=== PATIENT | female | born 1945 | race African-American/Black ===

== ENCOUNTER 2016-07-13 17:40 | Emergency (ER) | payer MEDICARE ==
[~2016-07-13] VITALS: Ht 149.9 cm; Wt 78.0 kg
[~2016-07-13 17:40] MED LIST: BENZONATATE200 MG PO; CAL-CITRATE OR; CALCIUM600 M1 PO; DIOVAN HC1 OR; DIOVAN HC1 PO; DIOVAN80 MG PO; FLEXERIL PO; LASIX20 MG PO; LOVASTATIN10 M1 PO; METFORMIN500 M2 PO; MULTI VIT PO; MULTIVITAMI9 OR; OMEGA 3-6-9 COMPLEX OR; OMEGA 3-6-9 COMPLEX PO; PREDNISONE10 MG PO; PRILOSEC20 MG/CAP PO; SUGAR BLOCKER PO; ULTRAM50 MG OR; ULTRAM50 MG PO; ZITHROMAX250 MG PO; [UNRECOGNIZED DRUG - CODE] PO; [UNRECOGNIZED DRUG - OTHER]
[2016-07-13 19:11] LABS: HEMATOCRIT 38.8 % (37.0-47.0); HEMOGLOBIN 13.1 g/dl (12.0-16.0); IMMATURE GRANULOCYTES 0.4 % (0.0-1.0); MEAN CELL VOLUME 88.6 fL CALC (80.0-100.0); MEAN CORPUSCULAR HGB 29.9 pG CALC (26.0-32.0); MEAN CORPUSCULAR HGB CONC 33.8 g/L CALC (32.0-36.0); NEUT# 9.52 thou/uL (2.00-7.15); RED BLOOD COUNT 4.38 mill/uL (4.20-5.60); RED CELL DISTRI WIDTH 13.1 % (11.5-15.5)
[2016-07-13 19:15] LABS: PROTHROMBIN TIME 10.9 SECONDS (9.0-12.5)
[2016-07-13 19:18] LABS: ALBUMIN 4.9 g/dL (3.2-5.0); ALKALINE PHOSPHATASE 93 u/l (38-126); ANION GAP 18 (6-22 (CALC)); BILIRUBIN, TOTAL 0.8 mg/dL (0.0-1.4); BUN 17 mg/dL (8-23); BUN/CREATININE RATIO 22 (12-20 (CALC)); CARBON DIOXIDE 29 mmol/l (22-30); CHLORIDE 99 mmol/l (95-108); CREATININE 0.7 mg/dL (0.5-1.0); GFR > 60 ML/MIN (>=60 (CALC)); GFR FOR AFR.AMER. > 60 ML/MIN (>=60 (CALC)); GLUCOSE 146 mg/dL (82-115); POTASSIUM 3.6 mmol/l (3.5-5.1); SGOT/AST 39 u/l (9-36); SGPT/ALT 42 u/l (11-66); SODIUM 143 mmol/l (137-146); TOTAL PROTEIN 9.1 g/dL (6.3-8.2)
[2016-07-13 19:29] LABS: MYOGLOBIN 239 ng/mL (0 - 62)
[2016-07-13 20:15] LABS: URINE BILIRUBIN - DIPSTICK NEGATIVE (NEGATIVE); URINE BLOOD DIPSTICK NEGATIVE (NEGATIVE); URINE CLARITY CLEAR; URINE COLOR YELLOW; URINE GLUCOSE - DIPSTICK NEGATIVE (NEGATIVE); URINE KETONE NEGATIVE (NEGATIVE); URINE LEUK ESTERASE TRACE (NEGATIVE); URINE NITRITE - DIPSTICK NEGATIVE (Negative); URINE PH 5.5 (4.5-8.0); URINE PROTEIN - DIPSTICK NEGATIVE (NEG-TRACE); URINE SPECIFIC GRAVITY 1.025; URINE UROBILINOGEN - DIPSTICK 0.2 E.U./dL (0.2)
[2016-07-13 20:17] LABS: BARBITURATES NEGATIVE (NEGATIVE); COCAINE NEGATIVE (NEGATIVE); METHADONE NEGATIVE (NEGATIVE); OXCYCODONE NEGATIVE (NEGATIVE); TETRAHYDROCANNABIONOL NEGATIVE (NEGATIVE); TRICYLIC ANTIDEPRESSANTS NEGATIVE (NEGATIVE)
[2016-07-13 21:35] VITALS: BP 141/74
== END 2016-07-13 21:35 | disposition short-term general hospital (02) ==
LOC: ED 17:40
PROVIDERS: Emergency Medicine
DX: I62.01 Nontraumatic acute subdural hemorrhage (principal); I10 Essential (primary) hypertension; R53.1 Weakness; R42 Dizziness and giddiness; W18.30XA Fall on same level, unspecified, initial encounter; Y92.009 Unspecified place in unspecified non-institutional (private) residence as the place of occurrence of the external cause; R51 Headache

== ENCOUNTER 2017-11-15 23:56 | Emergency (ER) | payer MEDICARE ==
[~2017-11-15] VITALS: Ht 149.9 cm; Wt 70.5 kg
[2017-11-16] MEDS ORDERED: DONEPEZIL5 MG PO (00:30)
[2017-11-16] MEDS ORDERED: METFORMIN500 MG PO (00:30)
[2017-11-16] MEDS ORDERED: BACLOFEN10 MG PO (00:31)
[2017-11-16] MEDS ORDERED: FIORICET PO (00:32)
[2017-11-16] MEDS ORDERED: LORTAB 1010 MG PO (01:54)
[2017-11-16 02:30] VITALS: BP 155/84
== END 2017-11-16 02:33 | disposition home or self-care (01) ==
LOC: ED 23:56
DX: M47.812 Spondylosis without myelopathy or radiculopathy, cervical region (principal); M43.6 Torticollis; M54.2 Cervicalgia

== ENCOUNTER → 2018-01-13 | Outpatient (REF) | payer MEDICARE ==
[~2018-01-13] MED LIST changes: +BACLOFEN10 MG PO; +DONEPEZIL5 MG PO; +FIORICET PO; +LORTAB 1010 MG PO; +METFORMIN500 MG PO
[2018-01-13 08:41] LABS: ALBUMIN 4.1 g/dL (3.2-5.0); ALKALINE PHOSPHATASE 76 u/l (38-126); ANION GAP 12 (6-22 (CALC)); BILIRUBIN, TOTAL 0.5 mg/dL (0.0-1.4); BUN 15 mg/dL (8-23); BUN/CREATININE RATIO 23 (12-20 (CALC)); CALCULATED LDLCHOLESTEROL 98 mg/dL (62-129 (CALC)); CARBON DIOXIDE 34 mmol/l (22-30); CHLORIDE 98 mmol/l (95-108); CREATININE 0.7 mg/dL (0.5-1.0); GFR > 60 ML/MIN (>=60 (CALC)); GFR FOR AFR.AMER. > 60 ML/MIN (>=60 (CALC)); HDL CHOLESTEROL 37 mg/dL (>=40); POTASSIUM 4.2 mmol/l (3.5-5.1); SGOT/AST 55 u/l (9-36); SODIUM 140 mmol/l (137-146); TOTAL CHOLESTEROL 186 mg/dl (0-199); TOTAL PROTEIN 7.5 g/dL (6.3-8.2); TOTAL TRIGLYCERIDES 253 mg/dl (30-149); VLDL CHOLESTROL 51 mg/dl (0-48 (CALC))
[2018-01-13 09:37] LABS: HEMATOCRIT 39.9 % (37.0-47.0); HEMOGLOBIN 13.4 g/dl (12.0-16.0); MEAN CELL VOLUME 91.7 fL CALC (80.0-100.0); MEAN CORPUSCULAR HGB 30.8 pG CALC (26.0-32.0); MEAN CORPUSCULAR HGB CONC 33.6 g/L CALC (32.0-36.0); RED BLOOD COUNT 4.35 mill/uL (4.20-5.60); RED CELL DISTRI WIDTH 13.3 % (11.5-15.5)
== END | disposition home or self-care (01) ==
LOC: MRI 06:44
PROVIDERS: ATTEND Internal Medicine
DX: M54.12 Radiculopathy, cervical region (principal); E11.9 Type 2 diabetes mellitus without complications; I10 Essential (primary) hypertension

== ENCOUNTER 2018-03-18 13:04 | Inpatient (IN) | payer MEDICARE ==
[~2018-03-18] VITALS: Ht 149.9 cm; Wt 74.0 kg
[2018-03-18] MEDS ORDERED: CELECOXIB100 MG PO (13:27)
[2018-03-18] MEDS ORDERED: ZETIA10 MG PO (13:27)
[2018-03-18] MEDS ORDERED: GLUCOSAMINE & C1 CAP PO (13:28)
[2018-03-18] MEDS ORDERED: GABAPENTIN100 MG PO (13:28)
[2018-03-18 13:34] LABS: HEMOGLOBIN 13.7 g/dl (12.0-16.0); IMMATURE GRANULOCYTES 0.6 % (0.0-5.0); MEAN CELL VOLUME 90.3 fL CALC (80.0-100.0); MEAN CORPUSCULAR HGB 30.9 pG CALC (26.0-32.0); MEAN CORPUSCULAR HGB CONC 34.3 g/L CALC (32.0-36.0); NEUT# 16.33 thou/uL (2.00-7.15); RED BLOOD COUNT 4.43 mill/uL (4.20-5.60); RED CELL DISTRI WIDTH 13.2 % (11.5-15.5)
[2018-03-18 13:49] LABS: ANION GAP 16 (6-22 (CALC)); BUN 13 mg/dL (8-23); BUN/CREATININE RATIO 19 (12-20 (CALC)); CARBON DIOXIDE 28 mmol/l (22-30); CHLORIDE 99 mmol/l (95-108); CREATININE 0.7 mg/dL (0.5-1.0); GFR > 60 ML/MIN (>=60 (CALC)); GFR FOR AFR.AMER. > 60 ML/MIN (>=60 (CALC)); POTASSIUM 4.2 mmol/l (3.5-5.1); SODIUM 138 mmol/l (137-146)
[2018-03-18 14:38] LABS: URINE BILIRUBIN - DIPSTICK NEGATIVE (NEGATIVE); URINE BLOOD DIPSTICK NEGATIVE (NEGATIVE); URINE COLOR YELLOW; URINE GLUCOSE - DIPSTICK NEGATIVE (NEGATIVE); URINE KETONE NEGATIVE (NEGATIVE); URINE LEUK ESTERASE NEGATIVE (NEGATIVE); URINE NITRITE - DIPSTICK NEGATIVE (Negative); URINE PROTEIN - DIPSTICK NEGATIVE (NEG-TRACE); URINE UROBILINOGEN - DIPSTICK 0.2 E.U./dL (0.2)
[2018-03-18 15:37] LABS: URINE CLARITY CLEAR
[2018-03-18 17:04] VITALS: BP 118/73
[2018-03-18 19:00] VITALS: BP 91/61
[2018-03-19] VITALS: BP 119/73
[2018-03-19 04:45] VITALS: BP 119/78
[2018-03-19 06:02] LABS: ANION GAP 12 (6-22 (CALC)); BUN 13 mg/dL (8-23); BUN/CREATININE RATIO 22 (12-20 (CALC)); CARBON DIOXIDE 30 mmol/l (22-30); CHLORIDE 101 mmol/l (95-108); CREATININE 0.6 mg/dL (0.5-1.0); GFR > 60 ML/MIN (>=60 (CALC)); GFR FOR AFR.AMER. > 60 ML/MIN (>=60 (CALC)); HEMATOCRIT 36.8 % (37.0-47.0); HEMOGLOBIN 12.2 g/dl (12.0-16.0); MEAN CELL VOLUME 92.2 fL CALC (80.0-100.0); MEAN CORPUSCULAR HGB 30.6 pG CALC (26.0-32.0); MEAN CORPUSCULAR HGB CONC 33.2 g/L CALC (32.0-36.0); POTASSIUM 3.6 mmol/l (3.5-5.1); RED BLOOD COUNT 3.99 mill/uL (4.20-5.60); RED CELL DISTRI WIDTH 13.4 % (11.5-15.5); SODIUM 139 mmol/l (137-146)
[2018-03-19 08:00] VITALS: BP 106/58
[2018-03-19 11:57] VITALS: BP 119/79
[2018-03-19 15:45] VITALS: BP 143/87
[2018-03-19 16:26] LABS: ALKALINE PHOSPHATASE 66 u/l (38-126); AMYLASE 55 u/l (30-110); ANION GAP 14 (6-22 (CALC)); BILIRUBIN, TOTAL 0.5 mg/dL (0.0-1.4); BUN 13 mg/dL (8-23); BUN/CREATININE RATIO 18 (12-20 (CALC)); CARBON DIOXIDE 25 mmol/l (22-30); CHLORIDE 105 mmol/l (95-108); CREATININE 0.7 mg/dL (0.5-1.0); GFR > 60 ML/MIN (>=60 (CALC)); GFR FOR AFR.AMER. > 60 ML/MIN (>=60 (CALC)); LIPASE 189 u/l (23-300); POTASSIUM 3.8 mmol/l (3.5-5.1); SGOT/AST 34 u/l (9-36); SODIUM 140 mmol/l (137-146); TOTAL PROTEIN 7.2 g/dL (6.3-8.2)
[2018-03-19 16:27] LABS: ALBUMIN 3.8 g/dL (3.2-5.0)
[2018-03-19 20:00] VITALS: BP 121/68
[2018-03-20 05:03] VITALS: BP 125/71
[2018-03-20 05:47] LABS: HEMATOCRIT 38.1 % (37.0-47.0); HEMOGLOBIN 12.7 g/dl (12.0-16.0); IMMATURE GRANULOCYTES 0.5 % (0.0-5.0); MEAN CELL VOLUME 92.9 fL CALC (80.0-100.0); MEAN CORPUSCULAR HGB CONC 33.3 g/L CALC (32.0-36.0); NEUT# 8.78 thou/uL (2.00-7.15); RED BLOOD COUNT 4.1 mill/uL (4.20-5.60); RED CELL DISTRI WIDTH 13.4 % (11.5-15.5)
[2018-03-20 06:14] LABS: ANION GAP 12 (6-22 (CALC)); BUN 11 mg/dL (8-23); BUN/CREATININE RATIO 18 (12-20 (CALC)); CARBON DIOXIDE 28 mmol/l (22-30); CHLORIDE 103 mmol/l (95-108); CREATININE 0.6 mg/dL (0.5-1.0); GFR > 60 ML/MIN (>=60 (CALC)); GFR FOR AFR.AMER. > 60 ML/MIN (>=60 (CALC)); POTASSIUM 4.2 mmol/l (3.5-5.1); SODIUM 139 mmol/l (137-146)
[2018-03-20 08:07] VITALS: BP 118/85
[2018-03-20 11:32] LABS: URINE BILIRUBIN - DIPSTICK NEGATIVE (NEGATIVE); URINE BLOOD DIPSTICK TRACE-INTACT (NEGATIVE); URINE COLOR YELLOW; URINE GLUCOSE - DIPSTICK NEGATIVE (NEGATIVE); URINE KETONE NEGATIVE (NEGATIVE); URINE LEUK ESTERASE NEGATIVE (Negative); URINE NITRITE - DIPSTICK NEGATIVE (Negative); URINE PROTEIN - DIPSTICK NEGATIVE (NEG-TRACE); URINE UROBILINOGEN - DIPSTICK 0.2 E.U./dL (0.2)
[2018-03-20 11:36] LABS: URINE CLARITY CLEAR
[2018-03-20 12:00] VITALS: BP 139/81
[2018-03-20 15:55] VITALS: BP 114/72
[2018-03-20 20:27] VITALS: BP 115/64
[2018-03-20 23:51] VITALS: BP 120/77
[2018-03-21 04:43] VITALS: BP 119/66
[2018-03-21 05:31] LABS: HEMATOCRIT 33.9 % (37.0-47.0); HEMOGLOBIN 11.4 g/dl (12.0-16.0); IMMATURE GRANULOCYTES 0.3 % (0.0-5.0); MEAN CELL VOLUME 92.4 fL CALC (80.0-100.0); MEAN CORPUSCULAR HGB 31.1 pG CALC (26.0-32.0); MEAN CORPUSCULAR HGB CONC 33.6 g/L CALC (32.0-36.0); NEUT# 5.31 thou/uL (2.00-7.15); RED BLOOD COUNT 3.67 mill/uL (4.20-5.60); RED CELL DISTRI WIDTH 13.4 % (11.5-15.5)
[2018-03-21 05:53] LABS: ALKALINE PHOSPHATASE 54 u/l (38-126); ANION GAP 11 (6-22 (CALC)); BILIRUBIN, TOTAL 0.8 mg/dL (0.0-1.4); BUN 8 mg/dL (8-23); BUN/CREATININE RATIO 12 (12-20 (CALC)); CARBON DIOXIDE 24 mmol/l (22-30); CHLORIDE 106 mmol/l (95-108); CREATININE 0.7 mg/dL (0.5-1.0); GFR > 60 ML/MIN (>=60 (CALC)); GFR FOR AFR.AMER. > 60 ML/MIN (>=60 (CALC)); MAGNESIUM 1.8 mg/dL (1.6-2.3); POTASSIUM 3.7 mmol/l (3.5-5.1); SGOT/AST 24 u/l (9-36); SODIUM 138 mmol/l (137-146); TOTAL PROTEIN 6.1 g/dL (6.3-8.2)
[2018-03-21 08:00] VITALS: BP 116/68
[2018-03-21 14:45] VITALS: BP 117/68
[2018-03-21 20:06] VITALS: BP 115/69
[2018-03-22 04:30] VITALS: BP 134/82
[2018-03-22 05:51] LABS: HEMATOCRIT 33.4 % (37.0-47.0); HEMOGLOBIN 10.7 g/dl (12.0-16.0); IMMATURE GRANULOCYTES 0.4 % (0.0-5.0); MEAN CELL VOLUME 97.1 fL CALC (80.0-100.0); MEAN CORPUSCULAR HGB 31.1 pG CALC (26.0-32.0); NEUT# 5.51 thou/uL (2.00-7.15); RED BLOOD COUNT 3.44 mill/uL (4.20-5.60); RED CELL DISTRI WIDTH 14.5 % (11.5-15.5)
[2018-03-22 06:14] LABS: ALKALINE PHOSPHATASE 55 u/l (38-126); ANION GAP 12 (6-22 (CALC)); BILIRUBIN, TOTAL 0.8 mg/dL (0.0-1.4); BUN 9 mg/dL (8-23); BUN/CREATININE RATIO 14 (12-20 (CALC)); CARBON DIOXIDE 24 mmol/l (22-30); CHLORIDE 108 mmol/l (95-108); CREATININE 0.7 mg/dL (0.5-1.0); GFR > 60 ML/MIN (>=60 (CALC)); GFR FOR AFR.AMER. > 60 ML/MIN (>=60 (CALC)); MAGNESIUM 1.9 mg/dL (1.6-2.3); POTASSIUM 3.9 mmol/l (3.5-5.1); SGOT/AST 23 u/l (9-36); SODIUM 140 mmol/l (137-146); TOTAL PROTEIN 5.9 g/dL (6.3-8.2)
[2018-03-22 08:17] VITALS: BP 160/98
[2018-03-22 16:00] VITALS: BP 152/90
[2018-03-22 19:53] VITALS: BP 102/64
[2018-03-23 04:52] VITALS: BP 145/91
[2018-03-23 05:39] LABS: HEMATOCRIT 30.7 % (37.0-47.0); HEMOGLOBIN 10.3 g/dl (12.0-16.0); IMMATURE GRANULOCYTES 0.7 % (0.0-5.0); MEAN CELL VOLUME 91.9 fL CALC (80.0-100.0); MEAN CORPUSCULAR HGB 30.8 pG CALC (26.0-32.0); MEAN CORPUSCULAR HGB CONC 33.6 g/L CALC (32.0-36.0); NEUT# 4.74 thou/uL (2.00-7.15); RED BLOOD COUNT 3.34 mill/uL (4.20-5.60); RED CELL DISTRI WIDTH 13.3 % (11.5-15.5)
[2018-03-23 06:10] LABS: ALBUMIN 3.1 g/dL (3.2-5.0); ALKALINE PHOSPHATASE 58 u/l (38-126); ANION GAP 11 (6-22 (CALC)); BILIRUBIN, TOTAL 0.8 mg/dL (0.0-1.4); BUN 8 mg/dL (8-23); BUN/CREATININE RATIO 15 (12-20 (CALC)); CARBON DIOXIDE 24 mmol/l (22-30); CHLORIDE 107 mmol/l (95-108); CREATININE 0.5 mg/dL (0.5-1.0); GFR > 60 ML/MIN (>=60 (CALC)); GFR FOR AFR.AMER. > 60 ML/MIN (>=60 (CALC)); MAGNESIUM 1.9 mg/dL (1.6-2.3); POTASSIUM 3.7 mmol/l (3.5-5.1); SGOT/AST 21 u/l (9-36); SODIUM 139 mmol/l (137-146); TOTAL PROTEIN 6.1 g/dL (6.3-8.2)
[2018-03-23 08:19] VITALS: BP 140/79
[2018-03-23 16:17] VITALS: BP 149/68
[2018-03-23 19:39] VITALS: BP 137/84
[2018-03-24 04:45] VITALS: BP 151/91
[2018-03-24 05:58] LABS: HEMATOCRIT 30.3 % (37.0-47.0); HEMOGLOBIN 10.2 g/dl (12.0-16.0); IMMATURE GRANULOCYTES 0.7 % (0.0-5.0); MEAN CELL VOLUME 91.5 fL CALC (80.0-100.0); MEAN CORPUSCULAR HGB 30.8 pG CALC (26.0-32.0); MEAN CORPUSCULAR HGB CONC 33.7 g/L CALC (32.0-36.0); NEUT# 3.98 thou/uL (2.00-7.15); RED BLOOD COUNT 3.31 mill/uL (4.20-5.60); RED CELL DISTRI WIDTH 13.3 % (11.5-15.5)
[2018-03-24 06:36] LABS: ALBUMIN 2.9 g/dL (3.2-5.0); ALKALINE PHOSPHATASE 59 u/l (38-126); ANION GAP 14 (6-22 (CALC)); BILIRUBIN, TOTAL 0.7 mg/dL (0.0-1.4); BUN 6 mg/dL (8-23); BUN/CREATININE RATIO 10 (12-20 (CALC)); CARBON DIOXIDE 25 mmol/l (22-30); CHLORIDE 104 mmol/l (95-108); CREATININE 0.6 mg/dL (0.5-1.0); GFR > 60 ML/MIN (>=60 (CALC)); GFR FOR AFR.AMER. > 60 ML/MIN (>=60 (CALC)); MAGNESIUM 1.9 mg/dL (1.6-2.3); POTASSIUM 3.6 mmol/l (3.5-5.1); SGOT/AST 26 u/l (9-36); SODIUM 139 mmol/l (137-146); TOTAL PROTEIN 5.9 g/dL (6.3-8.2)
[2018-03-24 09:14] VITALS: BP 162/90
[2018-03-24 15:39] VITALS: BP 147/81
[2018-03-24 19:17] VITALS: BP 144/85
[2018-03-25 04:42] VITALS: BP 136/92
[2018-03-25 05:15] LABS: HEMATOCRIT 34.3 % (37.0-47.0); HEMOGLOBIN 11.5 g/dl (12.0-16.0); MEAN CELL VOLUME 91.5 fL CALC (80.0-100.0); MEAN CORPUSCULAR HGB 30.7 pG CALC (26.0-32.0); MEAN CORPUSCULAR HGB CONC 33.5 g/L CALC (32.0-36.0); RED BLOOD COUNT 3.75 mill/uL (4.20-5.60); RED CELL DISTRI WIDTH 13.3 % (11.5-15.5)
[2018-03-25 05:38] LABS: ALBUMIN 3.3 g/dL (3.2-5.0); ALKALINE PHOSPHATASE 67 u/l (38-126); ANION GAP 14 (6-22 (CALC)); BILIRUBIN, TOTAL 0.6 mg/dL (0.0-1.4); BUN 4 mg/dL (8-23); BUN/CREATININE RATIO 7 (12-20 (CALC)); CARBON DIOXIDE 27 mmol/l (22-30); CHLORIDE 102 mmol/l (95-108); CREATININE 0.6 mg/dL (0.5-1.0); GFR > 60 ML/MIN (>=60 (CALC)); GFR FOR AFR.AMER. > 60 ML/MIN (>=60 (CALC)); MAGNESIUM 1.9 mg/dL (1.6-2.3); POTASSIUM 3.7 mmol/l (3.5-5.1); SGOT/AST 33 u/l (9-36); SODIUM 140 mmol/l (137-146); TOTAL PROTEIN 6.7 g/dL (6.3-8.2)
[2018-03-25 06:11] LABS: MANUAL DIFFERENTIAL YES
[2018-03-25 06:12] LABS: BAND 6 % (0-8)
[2018-03-25 06:15] LABS: PLATELET COUNT 305 thou/uL (130-400)
[2018-03-25 07:28] VITALS: BP 147/77
[2018-03-25 11:25] VITALS: BP 152/98
[2018-03-25 16:00] VITALS: BP 152/90
[2018-03-25 20:10] VITALS: BP 145/71
[2018-03-26 04:45] VITALS: BP 155/76
[2018-03-26 07:55] VITALS: BP 138/68
[2018-03-26 12:00] VITALS: BP 133/74
[2018-03-26 16:00] VITALS: BP 135/78
[2018-03-26 19:50] VITALS: BP 94/52
[2018-03-27 05:12] VITALS: BP 135/86
[2018-03-27 08:10] VITALS: BP 170/97
[2018-03-27 09:10] VITALS: BP 170/97
[2018-03-27] MEDS ORDERED: AMOXICILLIN500 MG PO (12:19)
[2018-03-27] MEDS ORDERED: TRAMADOL HYDROC50 MG PO (12:21)
== END 2018-03-27 13:13 | disposition home health service (06) | DRG 872 ==
LOC: ED 13:04 → ED-I 15:00 → ED 15:18 → MS2 15:19
PROVIDERS: Family Medicine; Internal Medicine Nephrology; ADMIT Internal Medicine; ATTEND Internal Medicine
PROC: 009U3ZX Drainage of Spinal Canal, Percutaneous Approach, Diagnostic (ICD-10-PCS; principal; 2018-03-18)
DX: A40.1 Sepsis due to streptococcus, group B (principal); M50.10 Cervical disc disorder with radiculopathy, unspecified cervical region; M54.16 Radiculopathy, lumbar region; I10 Essential (primary) hypertension; E11.40 Type 2 diabetes mellitus with diabetic neuropathy, unspecified; D64.9 Anemia, unspecified; F03.90 Unspecified dementia, unspecified severity, without behavioral disturbance, psychotic disturbance, mood disturbance, and anxiety; Z79.84 Long term (current) use of oral hypoglycemic drugs
CPT/HCPCS: J0131; J1650; J1756; J2540; J3370

== ENCOUNTER 2018-05-19 10:00 | Outpatient (RCR) | payer MEDICARE ==
[~2018-05-19 10:00] MED LIST changes: +AMOXICILLIN500 MG PO; +CELECOXIB100 MG PO; +GABAPENTIN100 MG PO; +GLUCOSAMINE & C1 CAP PO; +TRAMADOL HYDROC50 MG PO; +ZETIA10 MG PO
== END 2018-05-30 08:54 | disposition home or self-care (01) ==
LOC: PT 10:00
PROVIDERS: ATTEND Nurse Practitioner Adult Health
DX: M54.12 Radiculopathy, cervical region (principal); M54.5 Low back pain; R53.1 Weakness

== ENCOUNTER 2018-07-30 20:58 | Emergency (ER) | payer MEDICARE ==
[~2018-07-30] VITALS: Ht 149.9 cm; Wt 70.0 kg
[2018-07-30 22:52] VITALS: BP 120/75
== END 2018-07-30 22:51 | disposition home or self-care (01) ==
LOC: ED 20:58
DX: S80.01XA Contusion of right knee, initial encounter (principal); S50.01XA Contusion of right elbow, initial encounter; S51.011A Laceration without foreign body of right elbow, initial encounter; W01.0XXA Fall on same level from slipping, tripping and stumbling without subsequent striking against object, initial encounter; Y93.01 Activity, walking, marching and hiking; Y92.009 Unspecified place in unspecified non-institutional (private) residence as the place of occurrence of the external cause

== ENCOUNTER 2019-10-07 21:18 | Emergency (ER) | payer MEDICARE ==
[~2019-10-07] VITALS: Ht 149.9 cm; Wt 72.0 kg
[2019-10-07 22:03] LABS: HEMATOCRIT 36.7 % (37.0-47.0); HEMOGLOBIN 12.6 g/dl (12.0-16.0); IMMATURE GRANULOCYTES 0.2 % (0.0-5.0); MEAN CELL VOLUME 90.2 fL CALC (80.0-100.0); MEAN CORPUSCULAR HGB CONC 34.3 g/dL CAL (32.0-36.0); NEUT# 3.79 thou/uL (2.00-7.15); RED BLOOD COUNT 4.07 mill/uL (4.20-5.60); RED CELL DISTRI WIDTH 13.2 % (11.5-15.5)
[2019-10-07 22:18] LABS: ALBUMIN 4.4 g/dL (3.2-5.0); ALKALINE PHOSPHATASE 81 u/l (38-126); ANION GAP 13 (6-22 (CALC)); BUN 14 mg/dL (8-23); BUN/CREATININE RATIO 19 (12-20 (CALC)); CARBON DIOXIDE 29 mmol/l (22-30); CHLORIDE 99 mmol/l (95-108); CREATININE 0.7 mg/dL (0.5-1.0); GFR > 60 ML/MIN (>=60 (CALC)); GFR FOR AFR.AMER. > 60 ML/MIN (>=60 (CALC)); POTASSIUM 3.3 mmol/l (3.5-5.1); SGOT/AST 59 u/l (9-36); SODIUM 137 mmol/l (137-146); TOTAL PROTEIN 7.7 g/dL (6.3-8.2)
[2019-10-07 22:28] LABS: BILIRUBIN, TOTAL 0.5 mg/dL (0.0-1.4)
[2019-10-07] MEDS ORDERED: FISH,FLAX,BORAGE OIL (23:24)
[2019-10-07] MEDS ORDERED: PERCOCET 5/325M1 TAB PO (23:40)
[2019-10-07 23:44] LABS: URINE BILIRUBIN - DIPSTICK NEGATIVE (NEGATIVE); URINE BLOOD DIPSTICK NEGATIVE (NEGATIVE); URINE CLARITY CLEAR; URINE COLOR YELLOW; URINE GLUCOSE - DIPSTICK NEGATIVE (NEGATIVE); URINE KETONE NEGATIVE (NEGATIVE); URINE LEUK ESTERASE NEGATIVE (Negative); URINE NITRITE - DIPSTICK NEGATIVE (Negative); URINE PROTEIN - DIPSTICK NEGATIVE (NEG-TRACE); URINE SPECIFIC GRAVITY 1.025; URINE UROBILINOGEN - DIPSTICK 0.2 E.U./dL (0.2)
[2019-10-07 23:51] VITALS: BP 128/745
== END 2019-10-07 23:51 | disposition home or self-care (01) ==
LOC: ED 21:18
PROVIDERS: Emergency Medicine
DX: M79.672 Pain in left foot (principal); I11.0 Hypertensive heart disease with heart failure; I50.9 Heart failure, unspecified; E11.9 Type 2 diabetes mellitus without complications; Z79.84 Long term (current) use of oral hypoglycemic drugs

== ENCOUNTER 2020-08-19 14:46 | Observation (INO) | payer MEDICARE ==
[~2020-08-19] VITALS: Ht 149.9 cm; Wt 65.0 kg
[~2020-08-19 14:46] MED LIST changes: +ALLOPURINOL100 MG PO; +BUPROPION HCL150 M1 PO; +DESYREL50 MG PO; +DIOVAN HCT PO; +EZETIMIBE10 MG PO; +FISH,FLAX,BORAGE OIL; +FLEXERIL5 M1 PO; +JARDIANCE25 MG PO; +METFORMIN HCL500 M1 PO; +OMEPRAZOLE DR20 MG PO; +PERCOCET 5/325M1 TAB PO
--- NOTE | 2020-08-19 15:13 | NUR ---
PT AMBUALTED BACK TO ROOM. PT INSTRUCTED ON PLAN OF CARE.
[2020-08-19 15:37] LABS: HEMATOCRIT 46.9 % (37.0-47.0); HEMOGLOBIN 15.3 g/dl (12.0-16.0); IMMATURE GRANULOCYTES 0.1 % (0.0-5.0); MEAN CORPUSCULAR HGB CONC 32.6 g/dL CAL (32.0-36.0); NEUT# 2.91 thou/uL (2.00-7.15); RED BLOOD COUNT 5.1 mill/uL (4.20-5.60); RED CELL DISTRI WIDTH 13.3 % (11.5-15.5)
[2020-08-19 15:53] LABS: ALBUMIN 4.7 g/dL (3.2-5.0); ALKALINE PHOSPHATASE 70 u/l (38-126); AMYLASE 85 u/l (30-110); ANION GAP 13 (6-22 (CALC)); BILIRUBIN, TOTAL 0.8 mg/dL (0.0-1.4); BUN 10 mg/dL (8-23); BUN/CREATININE RATIO 14 (12-20 (CALC)); CARBON DIOXIDE 26 mmol/l (22-30); CHLORIDE 100 mmol/l (95-108); CREATININE 0.8 mg/dL (0.5-1.0); GFR > 60 ML/MIN (>=60 (CALC)); GFR FOR AFR.AMER. > 60 ML/MIN (>=60 (CALC)); LIPASE 132 u/l (23-300); SGOT/AST 38 u/l (9-36); SODIUM 136 mmol/l (137-146); TOTAL PROTEIN 8.5 g/dL (6.3-8.2)
[2020-08-19 15:55] LABS: POTASSIUM 3.4 mmol/l (3.5-5.1)
[2020-08-19 16:05] LABS: ACT PARTIAL THROMBO TIME 22.5 SECONDS (20.0-32.5); PROTHROMBIN TIME 10.5 SECONDS (9.0-12.5)
--- NOTE | 2020-08-19 16:30 | NUR ---
Reassessment of patient completed. No distress noted.
[2020-08-19 16:56] LABS: URINE BILIRUBIN - DIPSTICK NEGATIVE (NEGATIVE); URINE BLOOD DIPSTICK NEGATIVE (NEGATIVE); URINE COLOR YELLOW; URINE GLUCOSE - DIPSTICK >=1000 mg/dL (NEGATIVE); URINE KETONE NEGATIVE (NEGATIVE); URINE LEUK ESTERASE NEGATIVE (NEGATIVE); URINE PROTEIN - DIPSTICK NEGATIVE (NEG-TRACE); URINE SPECIFIC GRAVITY 1.025; URINE UROBILINOGEN - DIPSTICK 0.2 E.U./dL (0.2)
[2020-08-19 17:00] LABS: URINE NITRITE - DIPSTICK NEGATIVE (Negative)
--- NOTE | 2020-08-19 17:44 | NUR ---
Reassessment of patient completed. No distress noted.
[2020-08-19] MEDS ORDERED: CYCLOBENZAPR5 MG PO (17:54)
[2020-08-19] MEDS ORDERED: PANTOPRAZOLE SO40 M1 PO (17:55)
[2020-08-19] MEDS ORDERED: DONEPEZIL10 MG PO (17:56)
[2020-08-19] MEDS ORDERED: TESSALON PERLE100 MG PO (17:58)
--- NOTE | 2020-08-19 19:10 | NUR ---
REPORT IS CALLED TO FLOOR AWAITING TO TRANSPORT PATIENT. ROOM 279
[2020-08-19 19:28] VITALS: BP 112/74
--- NOTE | 2020-08-19 20:00 | NUR ---
PATIENT ADMITTED FROM ER VIA WHEELCHAIR WITH ER STAFF IN ATTENDANCE. PATIENT ABLE TO TRANSFER TO BED. AWAKE ALERT AND ORIENTEDX3 ADMITTED FOR CHEST PAIN. PATIENT DENIES ANY CHEST PAIN AT THIS TIME. STATES THAT SHE WOKE UP THIS MORNING WITH LEFT SIDED CHEST PAIN RADIATING TO HER BACK. RECENTLY TREATED FOR PNEUMONIA. TELE MONITOR IN PLACE READING SR-73. LUNGS ARE CLEAR AT THIS TIME. PATIENT STATES THAT H ER LAST BM WAS 08/17. DENIES ANY DIFFICULTY WITH URINATION. NO PERIPHERAL EDEMA NOTED WITH PULSES PALPABLE. SALINE LOCK TO RAC INTACT WITH GOOD BLOOD RETURN WHEN FLUSHED. ACCU-CHECK WAS 123-STATES THAT SHE DOES TAKE METFORMIN AT HOME. ORIENTED PATIENT TO ROOM AND SURROUNDINGS. INSTRUCTED ON USE OF NURSE CALL LIGHT SYSTEM, TV REMOTE AND PHONE. SAFETY PRECAUTIONS REINFORCED. CALL LIGHT IN REACH. WILL CONT TO MONITOR.
--- NOTE | 2020-08-19 21:15 | NUR ---
PATIENT RESTING IN BED-MEDICATED FOR GENERALIZED PAIN WITH TYLENOL 650MG PO. PROVIDED WITH HS SNACK OF JUICE AND CRACKERS. CALL LIGHT IN REACH. WILL CONT TO MONITOR.
--- NOTE | 2020-08-19 23:10 | NUR ---
PATIENT RESTING IN BED AT THIS TIME POSITIONED ON RIGHT SIDE WITH EYES CLOSED. RESPS ARE EVEN AND UNLABORED. TELE MONITOR IN PLACE. CALL LIGHT IN REACH. WILL CONT TO MONITOR.
[2020-08-20] VITALS: BP 95/62
[2020-08-20 04:00] VITALS: BP 91/57
--- NOTE | 2020-08-20 04:00 | NUR ---
PATIENT RESTING IN BED AT THIS TIME WITH EYES CLOSED. RESPS ARE EVEN AND UNLABORED, TELE MONITOR IN PLACE. CALL LIGHT IN REACH. WILL CONT TO MONITOR.
[2020-08-20 06:17] LABS: HEMATOCRIT 43.6 % (37.0-47.0); HEMOGLOBIN 13.9 g/dl (12.0-16.0); IMMATURE GRANULOCYTES 0.2 % (0.0-5.0); MEAN CELL VOLUME 93.4 fL CALC (80.0-100.0); MEAN CORPUSCULAR HGB 29.8 pG CALC (26.0-32.0); MEAN CORPUSCULAR HGB CONC 31.9 g/dL CAL (32.0-36.0); NEUT# 1.24 thou/uL (2.00-7.15); RED BLOOD COUNT 4.67 mill/uL (4.20-5.60); RED CELL DISTRI WIDTH 13.6 % (11.5-15.5)
[2020-08-20 06:46] LABS: ALKALINE PHOSPHATASE 53 u/l (38-126); ANION GAP 10 (6-22 (CALC)); BILIRUBIN, TOTAL 0.6 mg/dL (0.0-1.4); BUN 9 mg/dL (8-23); BUN/CREATININE RATIO 11 (12-20 (CALC)); CALCULATED LDLCHOLESTEROL 74 mg/dL (62-129 (CALC)); CARBON DIOXIDE 30 mmol/l (22-30); CHLORIDE 101 mmol/l (95-108); CHOLESTEROL HDL RATIO 4.2 (<4.4 (CALC)); CREATININE 0.8 mg/dL (0.5-1.0); GFR > 60 ML/MIN (>=60 (CALC)); GFR FOR AFR.AMER. > 60 ML/MIN (>=60 (CALC)); HDL CHOLESTEROL 33 mg/dL (>=40); MAGNESIUM 1.9 mg/dL (1.6-2.3); POTASSIUM 3.3 mmol/l (3.5-5.1); SGOT/AST 29 u/l (9-36); SODIUM 137 mmol/l (137-146); TOTAL CHOLESTEROL 140 mg/dl (0-199); TOTAL TRIGLYCERIDES 164 mg/dl (30-149); VLDL CHOLESTROL 33 mg/dl (0-48 (CALC))
[2020-08-20 06:59] LABS: ALBUMIN 3.6 g/dL (3.2-5.0); TOTAL PROTEIN 6.4 g/dL (6.3-8.2)
[2020-08-20 07:30] VITALS: BP 118/55
--- NOTE | 2020-08-20 07:30 | NUR ---
ASSESSMENT IS COMPLETED: IV SITE IS FREE FROM REDNESS OR EDEMA. HR IS REG,PULSES ARE STRONG X4, ABD IS SOFT WITH ACTIVE BS. BREATH SOUNDS ARE CLEAR,BILATERALLY. TELE MONITOR IN PLACE. CONTINUE TO OSBERVE AND MONITOR.
[2020-08-20] MEDS ORDERED: PANTOPRAZOLE SO40 M1 PO (10:13)
[2020-08-20] MEDS ORDERED: SLOW-MAG PO (10:15)
[2020-08-20 10:25] VITALS: BP 119/76
--- NOTE | 2020-08-20 11:52 | NUR ---
IV SITE AND TELE OFF PT. PT RECIEVED DISCHARGE ORDERS WILL CALL FOR A RIDE AND LET US KNOW NO DISTRESS NOTED.
--- NOTE | 2020-08-20 12:00 | NUR ---
PT RECEIVED DISCHARGE INSTRUCTIONS VERBALIZED UNDERSTANDING. IV SITE TAKEN OFF. CATHETER INTACT. NO REDNESS OR EDEMA. Discharge instructions given. Patient verbalizes understanding of same. Discharged in stable condition via Wheelchair to Home with family. All belongings sent with pt.
--- NOTE | 2020-08-21 09:50 | NUR ---
Blood culture results of 1 bottle growing Bacillus reported to Dr Peters. Likely a contaminant. No new orders at this time.
== END 2020-08-20 12:08 ==
LOC: ED 14:46 → ED-I 17:20 → ED 17:40 → MS2 17:41
PROVIDERS: Nurse Practitioner; ADMIT Internal Medicine; ATTEND Internal Medicine
DX: R07.9 Chest pain, unspecified (principal); I49.3 Ventricular premature depolarization; R00.8 Other abnormalities of heart beat; I11.0 Hypertensive heart disease with heart failure; I50.9 Heart failure, unspecified; E11.40 Type 2 diabetes mellitus with diabetic neuropathy, unspecified; F03.90 Unspecified dementia, unspecified severity, without behavioral disturbance, psychotic disturbance, mood disturbance, and anxiety; Z79.84 Long term (current) use of oral hypoglycemic drugs; Z86.79 Personal history of other diseases of the circulatory system; Z20.822 Contact with and (suspected) exposure to COVID-19
CPT/HCPCS: G0378; J1650; Q9967

== ENCOUNTER 2021-01-13 02:27 | Emergency (ER) | payer MEDICARE ==
[~2021-01-13] VITALS: Ht 149.9 cm; Wt 50.0 kg
[~2021-01-13 02:27] MED LIST changes: +CYCLOBENZAPR5 MG PO; +DONEPEZIL10 MG PO; +PANTOPRAZOLE SO40 M1 PO; +SLOW-MAG PO; +TESSALON PERLE100 MG PO
[2021-01-13] MEDS ORDERED: PERCOCET 5/325M1 TAB PO (06:23)
[2021-01-13 06:30] VITALS: BP 127/80
== END 2021-01-13 06:43 | disposition home or self-care (01) ==
LOC: ED 02:27
DX: S80.01XA Contusion of right knee, initial encounter (principal); S70.01XA Contusion of right hip, initial encounter; M17.11 Unilateral primary osteoarthritis, right knee; I11.0 Hypertensive heart disease with heart failure; I50.9 Heart failure, unspecified; E11.9 Type 2 diabetes mellitus without complications; W18.39XA Other fall on same level, initial encounter; Y92.008 Other place in unspecified non-institutional (private) residence as the place of occurrence of the external cause; Z79.84 Long term (current) use of oral hypoglycemic drugs; Z87.820 Personal history of traumatic brain injury

== ENCOUNTER 2021-07-09 06:57 | Day surgery (SDC) | payer MEDICARE ==
[~2021-07-09 06:57] MED LIST changes: -BUPROPION HCL150 M1 PO; +BUPROPN HCL300 MG PO; +FLONASE AL50 MCG/ACT; +VOLTAREN1%GEL TOP; +[UNRECOGNIZED DRUG - OTHER] PO
[2021-07-09 08:55] VITALS: BP 128/89
== END 2021-07-09 09:15 | disposition home or self-care (01) ==
LOC: ORM 06:57
PROVIDERS: ATTEND Surgery
PROC: 0DB98ZX Excision of Duodenum, Via Natural or Artificial Opening Endoscopic, Diagnostic (ICD-10-PCS; principal; 2021-07-09)
PROC: 0DB78ZX Excision of Stomach, Pylorus, Via Natural or Artificial Opening Endoscopic, Diagnostic (ICD-10-PCS; 2021-07-09)
DX: J38.7 Other diseases of larynx (principal); C7A.8 Other malignant neuroendocrine tumors; K29.70 Gastritis, unspecified, without bleeding; K44.9 Diaphragmatic hernia without obstruction or gangrene; K31.9 Disease of stomach and duodenum, unspecified; E11.9 Type 2 diabetes mellitus without complications; Z79.84 Long term (current) use of oral hypoglycemic drugs

== ENCOUNTER 2021-08-25 10:06 | Emergency (ER) | payer MEDICARE ==
[~2021-08-25] VITALS: Ht 149.9 cm; Wt 60.0 kg
[2021-08-25 10:35] VITALS: BP 136/87
[2021-08-25 11:00] VITALS: BP 121/84
[2021-08-25 11:30] VITALS: BP 130/64
[2021-08-25] MEDS ORDERED: CYCLOBENZAPRINE10 MG PO (11:47)
[2021-08-25] MEDS ORDERED: NAPROXEN500 MG PO (11:47)
[2021-08-25 11:48] VITALS: BP 130/64
== END 2021-08-25 12:05 | disposition home or self-care (01) ==
LOC: ED 10:06
DX: S43.402A Unspecified sprain of left shoulder joint, initial encounter (principal); I11.0 Hypertensive heart disease with heart failure; I50.9 Heart failure, unspecified; E11.9 Type 2 diabetes mellitus without complications; W19.XXXA Unspecified fall, initial encounter; Y92.009 Unspecified place in unspecified non-institutional (private) residence as the place of occurrence of the external cause; Z91.81 History of falling; Z87.820 Personal history of traumatic brain injury

== ENCOUNTER 2022-11-03 16:28 | Emergency (ER) | payer MEDICARE ==
[~2022-11-03] VITALS: Ht 149.9 cm; Wt 65.0 kg
[~2022-11-03 16:28] MED LIST changes: +CYCLOBENZAPRINE10 MG PO; +NAPROXEN500 MG PO
[2022-11-03 17:21] LABS: BASO% 0.5 % (0-3); EOS% 5.2 % (0-8); HEMATOCRIT 43.2 % (37.0-47.0); HEMOGLOBIN 13.8 g/dl (12.0-16.0); IMMATURE GRANULOCYTES 0.3 % (0.0-5.0); LYMPH% 24.7 % (15-41); MEAN CELL VOLUME 95.8 fL CALC (80.0-100.0); MEAN CORPUSCULAR HGB 30.6 pG CALC (26.0-32.0); MEAN CORPUSCULAR HGB CONC 31.9 g/dL CAL (32.0-36.0); MONO% 9.2 % (2-13); NEUT# 4.38 thou/uL (2.00-7.15); NEUT% 60.1 % (42-76); RED BLOOD COUNT 4.51 mill/uL (4.20-5.60)
[2022-11-03 17:31] LABS: ALBUMIN 4.7 g/dL (3.2-5.0); ALKALINE PHOSPHATASE 61 u/l (38-126); ANION GAP 13 (6-22 (CALC)); BILIRUBIN, TOTAL 0.6 mg/dL (0.02-1.3); BUN 12 mg/dL (8-23); BUN/CREATININE RATIO 13 (12-20 (CALC)); CARBON DIOXIDE 30 mmol/l (22-30); CHLORIDE 100 mmol/l (95-108); GFR FOR AFR.AMER. > 60 ML/MIN (>=60 (CALC)); GFR OTHER RACES 54 ML/MIN (>=60 (CALC)); POTASSIUM 4.3 mmol/l (3.5-5.1); SGOT/AST 37 u/l (9-36); SODIUM 138 mmol/l (137-146); TOTAL PROTEIN 7.8 g/dL (6.3-8.2)
[2022-11-03] MEDS ORDERED: DECADRON4 MG PO (19:32)
[2022-11-03 20:05] VITALS: BP 106/66
== END 2022-11-03 20:07 | disposition home or self-care (01) ==
LOC: ED 16:28
PROVIDERS: Nurse Practitioner
DX: R07.0 Pain in throat (principal); R13.10 Dysphagia, unspecified; I11.0 Hypertensive heart disease with heart failure; I50.9 Heart failure, unspecified; E11.9 Type 2 diabetes mellitus without complications; Z87.820 Personal history of traumatic brain injury; Z79.84 Long term (current) use of oral hypoglycemic drugs
CPT/HCPCS: Q9967

== ENCOUNTER 2022-12-23 10:55 | Emergency (ER) | payer MEDICARE ==
[2022-12-23] VITALS (8 sets, daily range): BP systolic 100–123; BP diastolic 66–97
[~2022-12-23] VITALS: Ht 149.9 cm; Wt 63.0 kg
[~2022-12-23 10:55] MED LIST changes: +DECADRON4 MG PO
[2022-12-23] MEDS ORDERED: CELEBREX200 MG PO (12:24)
== END 2022-12-23 13:00 | disposition home or self-care (01) ==
LOC: ED 10:55
DX: S46.911A Strain of unspecified muscle, fascia and tendon at shoulder and upper arm level, right arm, initial encounter (principal); I11.0 Hypertensive heart disease with heart failure; I50.9 Heart failure, unspecified; E11.9 Type 2 diabetes mellitus without complications; X50.0XXA Overexertion from strenuous movement or load, initial encounter; Y93.89 Activity, other specified; Z87.820 Personal history of traumatic brain injury

== ENCOUNTER 2023-06-04 08:49 | Observation (INO) | payer MEDICARE ==
[~2023-06-04] VITALS: Ht 149.9 cm; Wt 66.2 kg
[2023-06-04] VITALS (31 sets, daily range): BP systolic 84–149; BP diastolic 49–89
[~2023-06-04 08:49] MED LIST changes: +CELEBREX200 MG PO
--- NOTE | 2023-06-04 08:55 | NUR ---
PT TO ROOM 6 VIA W/C DUE TO (L) SIDED WEAKNESS, ABLE TO TRANSITION FROM W/C TO STRETCHER WITH STEADY STANCE, NAD NOTED, CHANGED TO GOWN, VS OBTAINED, NIH DONE, STROKE ALERT CALLED APPROX 904, PT IMMEDIATELY TO CT, PROVIDER NOTIFIED, CT BRAIN DONE 913, TELE NEURO DR. RADER [phone] WITH [facility] (1), I/V AND LABS OBTAINED 917, CTA BRAIN 944.
[2023-06-04 09:32] LABS: BASO% 1.2 % (0-3); EOS% 5.5 % (0-8); HEMATOCRIT 46.5 % (37.0-47.0); HEMOGLOBIN 15.3 g/dl (12.0-16.0); IMMATURE GRANULOCYTES 0.2 % (0.0-5.0); LYMPH% 38.3 % (15-41); MEAN CELL VOLUME 94.5 fL CALC (80.0-100.0); MEAN CORPUSCULAR HGB 31.1 pG CALC (26.0-32.0); MEAN CORPUSCULAR HGB CONC 32.9 g/dL CAL (32.0-36.0); MONO% 11.5 % (2-13); NEUT# 2.45 thou/uL (2.00-7.15); NEUT% 43.3 % (42-76); RED BLOOD COUNT 4.92 mill/uL (4.20-5.60); RED CELL DISTRI WIDTH 13.5 % (11.5-15.5)
--- NOTE | 2023-06-04 10:00 | NUR ---
PT ADVISED OF CONTINUED WAIT TIMES. PT VERBALIZED UNDERSTNDING. PT FAMILY AT BEDSIDE. VSS. CALL LIGHT IN REACH.
[2023-06-04] MEDS ORDERED: TOPROL XL25 MG PO (10:14)
[2023-06-04] MEDS ORDERED: BAYER ASPIRIN E81 MG PO (10:17)
[2023-06-04] MEDS ORDERED: ASPIRIN 81 MG/TAB PO ONE (10:40)
--- NOTE | 2023-06-04 11:00 | NUR ---
PT IS RESTING. EASILY AROUSABLE. VSS. CALL LIGHT IN REACH.
[2023-06-04 11:03] LABS: INTERNATIONAL NORMALIZED RATIO 1.1 RATIO (0.7-1.3); PROTHROMBIN TIME 10.8 SECONDS (9.0-12.5)
[2023-06-04 11:07] LABS: ALBUMIN 4.5 g/dL (3.2-5.0); ALKALINE PHOSPHATASE 77 u/l (38-126); ANION GAP 11 (6-22 (CALC)); BILIRUBIN, TOTAL 0.9 mg/dL (0.02-1.3); BUN 18 mg/dL (8-23); BUN/CREATININE RATIO 15 (12-20 (CALC)); CALCULATED LDLCHOLESTEROL 52 mg/dL (62-129 (CALC)); CARBON DIOXIDE 27 mmol/l (22-30); CHLORIDE 105 mmol/l (95-108); CREATININE 1.2 mg/dL (0.5-1.0); GFR FOR AFR.AMER. 53 ML/MIN (>=60 (CALC)); GFR OTHER RACES 44 ML/MIN (>=60 (CALC)); HDL CHOLESTEROL 35 mg/dL (39.0-59.0); POTASSIUM 4.6 mmol/l (3.5-5.1); SGOT/AST 45 u/l (9-36); SODIUM 139 mmol/l (137-146); TOTAL CHOLESTEROL 105 mg/dl (0-199); TOTAL PROTEIN 7.5 g/dL (6.3-8.2); TOTAL TRIGLYCERIDES 90 mg/dl (0-149); VLDL CHOLESTROL 18 mg/dl (0-48 (CALC))
--- NOTE | 2023-06-04 12:30 | NUR ---
PT VERBALIZED THEY WANT FOOD. SHANNANY CALLED FOR FOOD. PT IS ALERT AND VSS.
[2023-06-04] MEDS ORDERED: DEXTROSE 250 ML IV PRN (13:45)
--- NOTE | 2023-06-04 13:45 | NUR ---
PT FMILY AT BEDSIDE. PT PROVIDED PO FLUIDS. PT VERBALIZED NO NEEDS. VSS. CALL LIGHT IN REACH.
--- NOTE | 2023-06-04 14:30 | NUR ---
PT IS RESTING. EASILY AROUSABLE. VSS. CALL LIGHT IN REACH
[2023-06-04] MEDS ORDERED: FAMOTIDINE 20 MG/TAB PO SCH (15:00)
--- NOTE | 2023-06-04 15:46 | NUR ---
PT IS ALERT. PT WANTS TO SIT ON THE BEDSIDE. PT ASSISTED TO THE BEDSIDE. VSS
--- NOTE | 2023-06-04 16:32 | NUR ---
PT IS ALERT. PT ASSISTED BACK INTO BED. PT VERBALZIED NO NEEDS. FAMILY AT BEDSIDE
[2023-06-04] MEDS ORDERED: INSULIN LISPRO 100 UNITS/ML ML SC SCH (17:00)
--- NOTE | 2023-06-04 17:39 | NUR ---
PT IS ALERT. FAMILY AT BEDSIDE. NO NEEDS AT THIS TIME VSS.
--- NOTE | 2023-06-04 17:56 | NUR ---
REPORT PROVIDED TO [facility] NURSE.
--- NOTE | 2023-06-04 18:15 | NUR ---
female pt received to [facility] via stretcher accompanied by Caty Rivas RN and family; pt ambulatory to bed; admission assessment completed at this time; pt alert and oriented; admits to left hip pain and left arm pain; no n/v noted; resp even and unlabored; lungs clear; skin color wnl; hr reg; pulses present; no edema noted; tele 22 intact; abd soft with bs present; no bm noted per technical publications writer; no urine to inspect at this time; bsc; adult brief cdi, pt admits to urinary continence; #20 flushed and patent to rac; no redness or edema noted; NIH completed, 0; plan of care explained; pt request to take home Jardiance 25mg daily; informed MD will need to approve prior to self dosing; bed alarm set for pt safety; call light within reach; will continue to monitor
--- NOTE | 2023-06-04 19:45 | NUR ---
PT IN BED WATCHING TV, NO S/S OF DISTRESSNOTED, BREATHING IS EVEN AND UNLABORED. NO NEEDS OR COCNERNS VOICED AT THIS TIME CALL LIGHT IN REACH AND BED IN LOWEST POSTION. BED ALARM ON.
[2023-06-04] MEDS ORDERED: ATORVASTATIN CALCIUM 40 MG/TAB PO SCH (21:00)
--- NOTE | 2023-06-05 00:53 | NUR ---
PT IN BED RESTING WITH EYES CLSOED BREATHING IUIS EVEN AND UNLABORED. NO S/S OF DISTRESS NOTED. CALL LIGHT IN REACN AND BED ALARM ON.
[2023-06-05 01:00] VITALS: BP 100/59
[2023-06-05 04:01] VITALS: BP 115/64
--- NOTE | 2023-06-05 04:50 | NUR ---
PT ASSITED TO BSC AND BACK TO BED STANDY ASSIST. URINE SAMPLE SEND TO LAB. NO NEEDS OR CONCERN VOICED. CALL LIGHT IN REACH AND BED IN LOWST POSITION.
[2023-06-05 06:10] LABS: URINE BILIRUBIN - DIPSTICK Negative (NEGATIVE); URINE BLOOD DIPSTICK Negative (NEGATIVE); URINE GLUCOSE - DIPSTICK >=1000 mg/dL (NEGATIVE); URINE KETONE Negative (NEGATIVE); URINE LEUK ESTERASE Negative (NEGATIVE); URINE NITRITE - DIPSTICK Negative (Negative); URINE PH 5.5 (4.5-8.0); URINE PROTEIN - DIPSTICK Negative (NEG-TRACE); URINE SPECIFIC GRAVITY 1.025; URINE UROBILINOGEN - DIPSTICK 0.2 E.U./dL (0.2)
[2023-06-05 06:11] LABS: BASO% 0.9 % (0-3); EOS% 6.4 % (0-8); HEMATOCRIT 44.1 % (37.0-47.0); HEMOGLOBIN 14.4 g/dl (12.0-16.0); IMMATURE GRANULOCYTES 0.2 % (0.0-5.0); LYMPH% 41.6 % (15-41); MEAN CELL VOLUME 96.7 fL CALC (80.0-100.0); MEAN CORPUSCULAR HGB 31.6 pG CALC (26.0-32.0); MEAN CORPUSCULAR HGB CONC 32.7 g/dL CAL (32.0-36.0); MONO% 10.4 % (2-13); NEUT# 2.33 thou/uL (2.00-7.15); NEUT% 40.5 % (42-76); RED BLOOD COUNT 4.56 mill/uL (4.20-5.60); RED CELL DISTRI WIDTH 13.6 % (11.5-15.5)
[2023-06-05 06:12] LABS: URINE COLOR Yellow
[2023-06-05 06:29] LABS: BUN 17 mg/dL (8-23); BUN/CREATININE RATIO 18 (12-20 (CALC)); CALCULATED LDLCHOLESTEROL 28 mg/dL (62-129 (CALC)); CARBON DIOXIDE 25 mmol/l (22-30); CHLORIDE 109 mmol/l (95-108); CHOLESTEROL HDL RATIO 2.5 (<4.4 (CALC)); GFR FOR AFR.AMER. > 60 ML/MIN (>=60 (CALC)); GFR OTHER RACES 54 ML/MIN (>=60 (CALC)); HDL CHOLESTEROL 35 mg/dL (39.0-59.0); SODIUM 141 mmol/l (137-146); TOTAL CHOLESTEROL 85 mg/dl (0-199); TOTAL TRIGLYCERIDES 116 mg/dl (0-149); VLDL CHOLESTROL 23 mg/dl (0-48 (CALC))
[2023-06-05 06:34] LABS: ANION GAP 11 (6-22 (CALC)); C-REACTIVE PROTEIN < 0.5 mg/dL (0-0.9); POTASSIUM 3.6 mmol/l (3.5-5.1)
[2023-06-05 07:06] VITALS: BP 118/67
--- NOTE | 2023-06-05 08:00 | NUR ---
BEDSIDE SHIFT REPORT COMPLETED. CALL LIGHT WITHIN REACH. SITTING IN RECLINER. DENIES PAIN OR DISCOMFORT AT PRESENT TIME.
[2023-06-05] MEDS ORDERED: buPROPion HCL 150 MG TAB SR PO SCH (09:00)
[2023-06-05] MEDS ORDERED: ALLOPURINOL 100 MG/TAB PO SCH (09:00)
[2023-06-05] MEDS ORDERED: ASPIRIN 81 MG/TAB PO SCH (09:00)
[2023-06-05] MEDS ORDERED: PANTOPRAZOLE SODIUM Sesquihydr 40 MG/TAB PO SCH (09:00)
[2023-06-05] MEDS ORDERED: METOPROLOL SUCCINATE 25 MG/TAB-TOPROL XL PO SCH (09:00)
[2023-06-05] MEDS ORDERED: CLOPIDOGREL BISULFATE 75 MG/TAB TAB PO SCH (09:30)
[2023-06-05 11:16] VITALS: BP 104/53
--- NOTE | 2023-06-05 12:00 | NUR ---
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 NOTIFIED MD. NEUROLOGY CONSULT COMPLETED. SEE MD NOTES. PATIENT ALERT AND ORIENTED. HAS SHORT TERM MEMORY LOSS. SON ZIGGY NOTIFIED OF NEW FINDINGS AND PLAN TO TRANSFER TO [facility].
--- NOTE | 2023-06-05 12:32 | NUR ---
called transfer center of [facility] at [phone] spoke to balaji and gave information for transfer of this pt for an aneurysm that was resulted by mri. balaji asked if the food writer could fax h&p, mri report, and facesheet to facility at [phone]. food writer faxed everything to facility. balaji stated she will get ahold of dr reis to do doctor to doctor report and reach back out to me for acceptance.
[2023-06-05] MEDS ORDERED: POTASSIUM CHLORIDE 20 MEQ/TAB PO ONE (14:00)
--- NOTE | 2023-06-05 14:15 | NUR ---
[facility]SF[facility] AT [facility] CALLED AT [phone] SPOKE TO CRIS. STATED "THEY ACCEPTED THE PT JUST WAITING ON BED ASSIGNMENT AT THIS TIME." WILL CALL WHEN AVAILABLE. DR TO ACCEPT IS .
--- NOTE | 2023-06-05 15:05 | NUR ---
balaji from [facility] called back this music writer and stated she has a room number for this pt there. room number 572a call back report number [phone]. dr accepting is dr. Travis.
--- NOTE | 2023-06-05 15:35 | NUR ---
called [facility] for this pt to be transferred to [facility] room 572A. spoke to man and was given eta at our facility of 1600.
--- NOTE | 2023-06-05 16:00 | NUR ---
[facility] here to receive pt to transfer them to [facility] 572a.
--- NOTE | 2023-06-05 16:00 | NUR ---
REVEIVED BED ASSIGNMENT AT [facility]CE[facility]. FAMILY NOTIFIED OF TRANSFER AND ROOM NUMBER. SON STATED WOULD MEET HER OVER THERE. PATIENT LEFT HER CANE AND A BAG OF BELONGINGS HERE AND SON PICKED UP SHORTLY AFTER WAS DISCHARGED. DENIES PAIN OR DISCOMFORT. CONSENT SIGNED FOR TRANSFER. IV 20G INTACT IN LEFT AC. REPORT GIVEN TO KRAIG MILLIGAN AT [facility]
--- NOTE | 2023-06-05 16:10 | NUR ---
called [facility] back at [phone] spoke to balaji told pt was being picked up right now and that there time of arrival should be around 1710.
[2023-06-06] MEDS ORDERED: ASPIRIN EC 81 MG/TAB PO SCH (09:00)
== END 2023-06-05 16:17 | disposition short-term general hospital (02) ==
LOC: ED 08:49 → ED-I 09:39 → ED 11:46 → ED-I 11:47 → MS2 18:15
PROVIDERS: Emergency Medicine; ADMIT Student in an Organized Health Care Education/Training Program; ATTEND Student in an Organized Health Care Education/Training Program
DX: I67.1 Cerebral aneurysm, nonruptured (principal); G81.94 Hemiplegia, unspecified affecting left nondominant side; R20.2 Paresthesia of skin; R27.0 Ataxia, unspecified; I11.0 Hypertensive heart disease with heart failure; I50.9 Heart failure, unspecified; E11.40 Type 2 diabetes mellitus with diabetic neuropathy, unspecified; F03.90 Unspecified dementia, unspecified severity, without behavioral disturbance, psychotic disturbance, mood disturbance, and anxiety; H91.90 Unspecified hearing loss, unspecified ear; M54.12 Radiculopathy, cervical region; M54.16 Radiculopathy, lumbar region; E78.5 Hyperlipidemia, unspecified; Z87.820 Personal history of traumatic brain injury; Z79.84 Long term (current) use of oral hypoglycemic drugs
CPT/HCPCS: Q9967

== ENCOUNTER 2024-06-25 14:57 | Emergency (ER) | payer MEDICARE ==
[~2024-06-25] VITALS: Ht 149.9 cm; Wt 58.0 kg
[2024-06-25] VITALS (7 sets, daily range): BP systolic 128–139; BP diastolic 74–87
[~2024-06-25 14:57] MED LIST changes: +BAYER ASPIRIN E81 MG PO; +TOPROL XL25 MG PO
[2024-06-25] MEDS ORDERED: SODIUM CHLORIDE 0.9% 1,000 ML IV ONE (15:10)
[2024-06-25 15:54] LABS: EOS% 5.2 % (0-8); HEMOGLOBIN 12.9 g/dl (12.0-16.0); IMMATURE GRANULOCYTES 0.2 % (0.0-5.0); LYMPH% 33.7 % (15-41); MEAN CELL VOLUME 94.6 fL CALC (80.0-100.0); MEAN CORPUSCULAR HGB 31.4 pG CALC (26.0-32.0); MEAN CORPUSCULAR HGB CONC 33.2 g/dL CAL (32.0-36.0); MONO% 9.5 % (2-13); NEUT# 3.17 thou/uL (2.00-7.15); NEUT% 50.4 % (42-76); RED BLOOD COUNT 4.11 mill/uL (4.20-5.60); RED CELL DISTRI WIDTH 13.2 % (11.5-15.5)
[2024-06-25 15:55] LABS: HEMATOCRIT 38.9 % (37.0-47.0)
[2024-06-25 16:01] LABS: ALBUMIN 4.4 g/dL (3.2-5.0); ALKALINE PHOSPHATASE 78 u/l (38-126); ANION GAP 9 (6-22 (CALC)); BILIRUBIN, TOTAL 0.7 mg/dL (0.02-1.3); BUN 14 mg/dL (8-23); BUN/CREATININE RATIO 18 (12-20 (CALC)); CARBON DIOXIDE 27 mmol/l (22-30); CHLORIDE 105 mmol/l (95-108); CREATININE 0.8 mg/dL (0.5-1.0); ESTIMATED GFR 76 ML/MIN (>=90 (CALC)); POTASSIUM 3.8 mmol/l (3.5-5.1); SGOT/AST 36 u/l (9-36); SODIUM 138 mmol/l (137-146); TOTAL PROTEIN 7.8 g/dL (6.3-8.2)
[2024-06-25 16:05] LABS: ETHYL ALCOHOL < 10 mg/dl (0-30)
[2024-06-25 16:22] LABS: URINE BILIRUBIN - DIPSTICK Negative (NEGATIVE); URINE BLOOD DIPSTICK Negative (NEGATIVE); URINE GLUCOSE - DIPSTICK >=1000 mg/dL (NEGATIVE); URINE KETONE Negative (NEGATIVE); URINE LEUK ESTERASE Trace (NEGATIVE); URINE NITRITE - DIPSTICK Negative (Negative); URINE PH 6.5 (4.5-8.0); URINE PROTEIN - DIPSTICK Negative (NEG-TRACE); URINE SPECIFIC GRAVITY 1.015; URINE UROBILINOGEN - DIPSTICK 0.2 E.U./dL (0.2)
[2024-06-25 16:23] LABS: URINE COLOR Yellow
== END 2024-06-25 17:39 | disposition home or self-care (01) ==
LOC: ED 14:57
PROVIDERS: Family Medicine
DX: R53.1 Weakness (principal); R40.4 Transient alteration of awareness; I11.0 Hypertensive heart disease with heart failure; I50.9 Heart failure, unspecified; E11.9 Type 2 diabetes mellitus without complications; Z87.820 Personal history of traumatic brain injury; Z79.84 Long term (current) use of oral hypoglycemic drugs; Z20.822 Contact with and (suspected) exposure to COVID-19